=== PATIENT | female | born 1960 | race Caucasian/White ===

== ENCOUNTER 2017-03-21 16:39 | Emergency (ER) | payer MEDICARE, MEDICAID ==
[2017-03-21] MEDS ORDERED: Sodium Chloride 0.9% 500 ML IV SCH (18:45)
--- NOTE | 2017-03-21 18:47 | EDM.PDOC ---
ED HPI GENERAL MEDICAL PROBLEM - General Chief Complaint: General Stated Complaint: CONFUSION / INFECTION FROM INCISION ON STOMACH Time Seen by Provider: 03/21/17 18:28 Source of Information: Reports: Patient, Significant Other History Limitations: Reports: No Limitations - History of Present Illness INITIAL COMMENTS - FREE TEXT/NARRATIVE: 56 years old female patient presented with chief complaint of bolus overactive abdominal wound medication. Patient had recurrent hernia repair of her anterior abdominal wall. Done at [facility] by Dr. Aayush Junior. Patient concerned about infection of her surgical wound. Last surgery 1 month ago. Denies any fever. Feeling very weak today. Abdominal wound is getting more red, painful and mild purulent discharge. She is not on an antibiotic. Denies any chest pain or shortness breath. Denies any urinary symptoms. Denies any abdominal pain. No nausea or vomiting. - Related Data Allergies Allergy/AdvReac Type Severity Reaction Status Date / Time No Known Allergies Allergy Verified 03/21/17 17:12 Home Meds: Home Meds Cyclobenzaprine [Flexeril] 10 mg PO TID PRN 03/21/17 [History] Dexlansoprazole [Dexilant] 60 mg PO DAILY 03/21/17 [History] Ibuprofen 800 mg PO Q8H PRN 03/21/17 [History] Prochlorperazine [Compazine] 10 mg PO Q6H PRN 03/21/17 [History] Venlafaxine [Effexor] 150 mg PO BID 03/21/17 [History] diphenhydrAMINE HCl [Banophen] 25 mg PO Q8HR PRN 03/21/17 [History] oxyCODONE HCl/Acetaminophen [oxyCODONE-Acetaminophen 5-325] 1 - 2 tab PO Q4H PRN 03/21/17 [History] Past Medical History HEENT History: Reports: Impaired Vision Respiratory History: Reports: Asthma Gastrointestinal History: Reports: Cholelithiasis, Gastritis Musculoskeletal History: Reports: Arthritis Psychiatric History: Reports: Bipolar - Past Surgical History GI Surgical History: Reports: Cholecystectomy, Hernia Repair/Other, Other (See Below) Other GI Surgeries/Procedures: repairs to the mesh from multiple hernia repairs Social & Family History - Tobacco Use Smoking Status *Q: Current Every Day Smoker Years of Tobacco use: 35 Packs/Tins Daily: 1 - Caffeine Use Caffeine Use: Reports: Coffee, Soda - Alcohol Use Days Per Week of Alcohol Use: 7 Number of Drinks Per Day: 2 Total Drinks Per Week: 14 Date of Last Drink: 03/13/17 - Recreational Drug Use Recreational Drug Use: No ED ROS GENERAL - Review of Systems Review Of Systems: ROS reveals no pertinent complaints other than HPI. ED EXAM, GENERAL - Physical Exam Exam: See Below Exam Limited By: No Limitations General Appearance: Alert, WD/WN, No Apparent Distress Head: Atraumatic, Normocephalic Neck: Normal Inspection, Supple, Non-Tender, Full Range of Motion Respiratory/Chest: No Respiratory Distress, Lungs Clear, Normal Breath Sounds, No Accessory Muscle Use, Chest Non-Tender Cardiovascular: Normal Peripheral Pulses, Regular Rate, Rhythm, No Edema, No Gallop, No JVD, No Murmur, No Rub GI/Abdominal: Normal Bowel Sounds, Soft (Mild tenderness around the surgical wound was anterior abdominal wall. Induration. No obvious purulent discharge. Healing scab. Mild erythema. No guarding and no rebound.) Extremities: Normal Inspection, Normal Range of Motion, Non-Tender, Normal Capillary Refill, No Pedal Edema Neurological: Alert, Oriented, CN II-XII Intact, Normal Cognition, Normal Gait, Normal Reflexes, No Motor/Sensory Deficits Psychiatric: Normal Affect, Normal Mood Skin Exam: Warm, Dry, Intact, Normal Color, No Rash Course - Vital Signs Last Recorded V/S: Last Vital Signs Temp 35.6 C 03/21/17 19:19 Pulse 70 03/21/17 19:19 Resp 19 03/21/17 19:19 BP 121/61 03/21/17 19:19 Pulse Ox 98 03/21/17 19:19 - Orders/Labs/Meds Orders: Active Orders 24 hr Category Date Time Status UA W/MICROSCOPIC [URIN] Urgent Lab 03/21/17 19:19 Ordered Sodium Chloride 0.9% [Normal Saline] 500 ml Med 03/21/17 18:45 Active IV .BOLUS Medication Orders Sodium Chloride (Normal Saline) 500 mls @ 999 mls/hr IV .BOLUS NICKI Last Admin: 03/21/17 19:17 Dose: 999 mls/hr Labs: Laboratory Tests 03/21/17 03/21/17 03/21/17 Range/Units 18:52 18:52 18:52 WBC 7.0 (4.5-11.0) K/uL RBC 3.07 L (3.30-5.50) M/uL Hgb 9.2 L (12.0-15.0) g/dL Hct 28.6 L (36.0-48.0) % MCV 93 (80-98) fL MCH 30 (27-31) pg MCHC 32 (32-36) % Plt Count 199 (150-400) K/uL Neut % (Auto) 56 (36-66) % Lymph % (Auto) 26 (24-44) % [place] % (Auto) 16 H (2-6) % Eos % (Auto) 2 (2-4) % Baso % (Auto) 0 (0-1) % Sodium 137 L (140-148) mmol/L Potassium 3.3 L (3.6-5.2) mmol/L Chloride 105 (100-108) mmol/L Carbon Dioxide 24 (21-32) mmol/L Anion Gap 11.3 (5.0-14.0) mmol/L BUN 6 L (7-18) mg/dL Creatinine 0.9 (0.6-1.0) mg/dL Est Cr Clr Drug Dosing 66.90 mL/min Estimated GFR (MDRD) > 60 (>60) Glucose 80 (74-106) mg/dL Lactic Acid 1.5 (0.4-2.0) mmol/L Calcium 7.8 L (8.5-10.1) mg/dL Magnesium 2.1 (1.8-2.4) mg/dL Total Bilirubin 2.0 H (0.2-1.0) mg/dL AST 81 H (15-37) U/L ALT 26 (12-78) U/L Alkaline Phosphatase 172 H (46-116) U/L Total Protein 6.5 (6.4-8.2) g/dL Albumin 1.8 L (3.4-5.0) g/dL Globulin 4.7 H (2.3-3.5) g/dL Albumin/Globulin Ratio 0.4 L (1.2-2.2) Meds: Medications Generic Name Dose Route Start Last Admin Trade Name Freq PRN Reason Stop Dose Admin Sodium Chloride 500 mls @ 999 mls/hr 03/21/17 18:45 03/21/17 19:17 Normal Saline IV 999 mls/hr .BOLUS NICKI Administration - Re-Assessments/Exams Free Text/Narrative Re-Assessment/Exam: 03/21/17 18:46 Patient was seen and examined shortly after arrival. Stable. Given 500 male normal saline bolus. Lab reviewed. Anterior abdominal wall infection. I don't think there is deep intra-abdominal infection at this point but certainly if she starts showing any worsening sign she will need a CT abdomen and pelvis. Patient will be started on Vanco and Rocephin. The patient will be admitted to [facility] for further management tonight. She accepted admission for further management. Patient agrees with the plan. Stable for admission. 03/21/17 19:37 Departure - Departure Time of Disposition: 19:34 Disposition: [facility] Condition: Good Clinical Impression: Blister, infected, abdominal wall, Hypokalemia - Discharge Information Referrals: Jesus Rod MD [Primary Care Provider] - Forms: ED Department Discharge - My Orders Last 24 Hours: My Active Orders 03/21/17 18:45 Sodium Chloride 0.9% [Normal Saline] 500 ml IV .BOLUS 03/21/17 19:19 UA W/MICROSCOPIC [URIN] Urgent - Assessment/Plan Last 24 Hours: My Active Orders 03/21/17 18:45 Sodium Chloride 0.9% [Normal Saline] 500 ml IV .BOLUS 03/21/17 19:19 UA W/MICROSCOPIC [URIN] Urgent Plan: Admission
[2017-03-21] MEDS ORDERED: Pantoprazole 40 MG Vial IVPUSH ONE (20:29)
[2017-03-21] MEDS ORDERED: Iopamidol 612 MG/ML 100 ML Bottle IV PRN (20:42)
[2017-03-21] MEDS: Sodium Chloride 0.9% 10 ML Syringe FLUSH PRN ×2 (20:51→21:15)
[2017-03-21] MEDS ORDERED: cefTRIAXone 1 GM in Sodium Chloride 0.9% 50 ML IV ONE (21:11)
[2017-03-21] MEDS ORDERED: Sodium Chloride 0.9% 1,000 ML IV SCH (21:15)
--- NOTE | 2017-03-21 22:01 | EDM.PDOC ---
ED HPI GENERAL MEDICAL PROBLEM - General Chief Complaint: General Stated Complaint: CONFUSION / INFECTION FROM INCISION ON STOMACH Time Seen by Provider: 03/21/17 18:28 Source of Information: Reports: Patient, Significant Other History Limitations: Reports: No Limitations - History of Present Illness INITIAL COMMENTS - FREE TEXT/NARRATIVE: 56 years old female patient presented with chief complaint of bolus overactive abdominal wound medication. Patient had recurrent hernia repair of her anterior abdominal wall. Done at [facility] by Dr. Aayush Junior. Patient concerned about infection of her surgical wound. Last surgery 1 month ago. Denies any fever. Feeling very weak today. Abdominal wound is getting more red, painful and mild purulent discharge. She is not on an antibiotic. Denies any chest pain or shortness breath. Denies any urinary symptoms. Denies any abdominal pain. No nausea or vomiting. upon H&P exam for admission; Mrs. Coughlin reports she had worsen abdominal pain and intermittent confusion. she also reports not feeling well for the past week. Then reports had a MRI and Bx of Liver about one year ago, was told she had Stage 4 cirrhosis. She has been drinking 12 beers a day for years, quit 5 days ago, also had Chemical Dependency Treatment in February 2016, but didn't help, discharge and started to drink again. She reports intermittent black and bloody stool, last one a day ago, Vaginal bleeding 2 weeks ago. reports her buttocks and upper thighs have been very swollen the past few days. Reports colonscopy years ago, had polpys removed Medication Allergies; Latex, Plastic, Dilaudid. reports "crashed" when she was given Dilaudid while taking Chantix to quit smoking. Onset: Unknown/Unsure, Other (mesh surgery greater than one month ago.) Duration: Constant, Getting Worse Location: Reports: Abdomen, Generalized (not feeling well for 5 days, increased abdominal pain.) Quality: Reports: Ache, Sharp Severity: Moderate Improves with: Reports: Medication Worsens with: Reports: None Context: Reports: Other Associated Symptoms: Reports: Confusion (intermittent), Other (rectal bleed one day ago and vaginal bleeding 2 weeks ago.) - Related Data Allergies Allergy/AdvReac Type Severity Reaction Status Date / Time No Known Allergies Allergy Verified 03/21/17 17:12 Home Meds: Home Meds Cyclobenzaprine [Flexeril] 10 mg PO TID PRN 03/21/17 [History] Dexlansoprazole [Dexilant] 60 mg PO DAILY 03/21/17 [History] Ibuprofen 800 mg PO Q8H PRN 03/21/17 [History] Prochlorperazine [Compazine] 10 mg PO Q6H PRN 03/21/17 [History] Venlafaxine [Effexor] 150 mg PO BID 03/21/17 [History] diphenhydrAMINE HCl [Banophen] 25 mg PO Q8HR PRN 03/21/17 [History] oxyCODONE HCl/Acetaminophen [oxyCODONE-Acetaminophen 5-325] 1 - 2 tab PO Q4H PRN 03/21/17 [History] Past Medical History HEENT History: Reports: Impaired Vision Respiratory History: Reports: Asthma Gastrointestinal History: Reports: Cholelithiasis, Gastritis Musculoskeletal History: Reports: Arthritis Psychiatric History: Reports: Bipolar - Past Surgical History GI Surgical History: Reports: Cholecystectomy, Hernia Repair/Other, Other (See Below) Other GI Surgeries/Procedures: repairs to the mesh from multiple hernia repairs Social & Family History - Tobacco Use Smoking Status *Q: Current Every Day Smoker Years of Tobacco use: 35 Packs/Tins Daily: 1 - Caffeine Use Caffeine Use: Reports: Coffee, Soda - Alcohol Use Days Per Week of Alcohol Use: 7 Number of Drinks Per Day: 2 Total Drinks Per Week: 14 Date of Last Drink: 03/13/17 - Recreational Drug Use Recreational Drug Use: No ED ROS GENERAL - Review of Systems Review Of Systems: See Below Constitutional: Reports: Weakness, Fatigue, Weight Gain (edema of abdomen, buttocks and upper thigh.) HEENT: Reports: Glasses, Other (partial dentures of upper.) Respiratory: Reports: Other (smokes 3/4 to one pack per day; years.) Cardiovascular: Reports: No Symptoms Endocrine: Reports: Fatigue GI/Abdominal: Reports: Abdominal Pain (wound dehiscense), Black Stool ( intermittent), Bloody Stool, Nausea (heartburn) : Reports: Incontinence Musculoskeletal: Reports: Other (multi pain in joints, muscles, ankle and low back) Skin: Reports: Pallor, Wound (abdomin) Neurological: Reports: Confusion Psychiatric: Reports: No Symptoms Hematologic/Lymphatic: Reports: Anemia, Easy Bleeding, Easy Bruising Immunologic: Reports: Other (Plastic, latex and Dilaudid) ED EXAM, GI/ABD - Physical Exam Exam: See Below Exam Limited By: No Limitations General Appearance: Alert, Mild Distress, Other (appears much older than stated age. pallor) Eyes: Bilateral: Normal Appearance Ears: Normal External Exam, Normal Canal, Normal TMs Nose: Normal Inspection Throat/Mouth: Normal Inspection, Normal Lips, Normal Teeth, Normal Gums Head: Atraumatic, Normocephalic Neck: Normal Inspection, Supple, Non-Tender Respiratory/Chest: No Respiratory Distress, Lungs Clear, Normal Breath Sounds, No Accessory Muscle Use, Chest Non-Tender Cardiovascular: No Murmur, Other (anasarca) GI/Abdominal Exam: Distended, Guarding, Tender (mid to right upper quadrant. 5cm x 2.5 cm wound dehiscence), Abnormal Bowel Sounds, Other (tissue surrounding wound is hard, tender and red.) (Female) Exam: Normal External Exam, Normal Bimanual Exam, Other (did not appreciate any uriah bleeding.) Rectal (Female) Exam: Normal Exam, Normal Rectal Tone, Heme - Stool Back Exam: Normal Inspection, Full Range of Motion Extremities: Other (upper thigh with edema, tender to touch) Neurological: Alert, Inattentive Psychiatric: Normal Affect, Normal Mood Skin Exam: Warm, Rash (fingers; petechial rash), Wound/Incision Lymphatic: No Adenopathy Course - Vital Signs Last Recorded V/S: Last Vital Signs Temp 35.6 C 03/21/17 19:19 Pulse 64 03/21/17 20:13 Resp 19 03/21/17 20:13 BP 108/69 03/21/17 20:13 Pulse Ox 97 03/21/17 20:13 - Orders/Labs/Meds Orders: Active Orders 24 hr Category Date Time Status Abdomen Pelvis w Cont [CT] Stat Exams 03/21/17 20:25 Taken CULTURE BLOOD [BC] Urgent Lab 03/21/17 21:12 Ordered CULTURE BLOOD [BC] Urgent Lab 03/21/17 21:12 Ordered Iopamidol [Isovue-300 (61%)] Med 03/21/17 20:42 Active 100 ml IV . DIRECTED PRN Sodium Chloride 0.9% [Normal Saline] 1,000 ml Med 03/21/17 21:15 Active IV ASDIRECTED Sodium Chloride 0.9% [Normal Saline] 500 ml Med 03/21/17 18:45 Active IV .BOLUS Sodium Chloride 0.9% [Normal Saline] 70 ml Med 03/21/17 20:45 Active IV ASDIRECTED Sodium Chloride 0.9% [Saline Flush] Med 03/21/17 20:42 Active 10 ml FLUSH ONETIME PRN Vancomycin 1 gm Med 03/21/17 21:11 Active Sodium Chloride 0.9% [Normal Saline] 250 ml IV ONETIME Blood Culture x2 Reflex Set [OM.PC] Urgent Oth 03/21/17 21:11 Ordered Medication Orders Sodium Chloride (Normal Saline) 500 mls @ 999 mls/hr IV .BOLUS NICKI Last Admin: 03/21/17 19:17 Dose: 999 mls/hr Sodium Chloride (Normal Saline) 70 mls @ 3 mls/sec IV ASDIRECTED NICKI Last Admin: 03/21/17 21:15 Dose: 3 mls/sec Sodium Chloride (Normal Saline) 1,000 mls @ 150 mls/hr IV ASDIRECTED NICKI Last Admin: 03/21/17 21:42 Dose: 150 mls/hr Vancomycin HCl 1 gm/ Sodium (Chloride) 250 mls @ 150 mls/hr IV ONETIME ONE Stop: 03/21/17 22:50 Last Admin: 03/21/17 21:46 Dose: 150 mls/hr Iopamidol (Isovue-300 (61%)) 100 ml IV . DIRECTED PRN PRN Reason: RADIOLOGY EXAM Stop: 03/22/17 20:43 Last Admin: 03/21/17 21:15 Dose: 100 ml Sodium Chloride (Saline Flush) 10 ml FLUSH ONETIME PRN PRN Reason: per radiology protocol Last Admin: 03/21/17 21:15 Dose: 10 ml Admin: 03/21/17 20:51 Dose: 10 ml Labs: Laboratory Tests 03/21/17 03/21/17 03/21/17 Range/Units 18:00 18:52 18:52 WBC 7.0 (4.5-11.0) K/uL RBC 3.07 L (3.30-5.50) M/uL Hgb 9.2 L (12.0-15.0) g/dL Hct 28.6 L (36.0-48.0) % MCV 93 (80-98) fL MCH 30 (27-31) pg MCHC 32 (32-36) % Plt Count 199 (150-400) K/uL Neut % (Auto) 56 (36-66) % Lymph % (Auto) 26 (24-44) % [place] % (Auto) 16 H (2-6) % Eos % (Auto) 2 (2-4) % Baso % (Auto) 0 (0-1) % PT (9.5-12.0) sec INR (0.80-1.20) Sodium 137 L (140-148) mmol/L Potassium 3.3 L (3.6-5.2) mmol/L Chloride 105 (100-108) mmol/L Carbon Dioxide 24 (21-32) mmol/L Anion Gap 11.3 (5.0-14.0) mmol/L BUN 6 L (7-18) mg/dL Creatinine 0.9 (0.6-1.0) mg/dL Est Cr Clr Drug Dosing 66.90 mL/min Estimated GFR (MDRD) > 60 (>60) Glucose 80 (74-106) mg/dL Lactic Acid (0.4-2.0) mmol/L Calcium 7.8 L (8.5-10.1) mg/dL Magnesium 2.1 (1.8-2.4) mg/dL Total Bilirubin 2.0 H (0.2-1.0) mg/dL AST 81 H (15-37) U/L ALT 26 (12-78) U/L Alkaline Phosphatase 172 H (46-116) U/L Ammonia (11-32) mmol/L Total Protein 6.5 (6.4-8.2) g/dL Albumin 1.8 L (3.4-5.0) g/dL Globulin 4.7 H (2.3-3.5) g/dL Albumin/Globulin Ratio 0.4 L (1.2-2.2) Amylase (25-115) U/L Lipase (73-393) U/L Urine Color Yellow Urine Appearance Slightly cloudy Urine pH 6.0 (4.5-8.0) Ur Specific [place] 1.005 L (1.008-1.030) Urine Protein Negative (NEGATIVE) mg/dL Urine Glucose (UA) Normal (NEGATIVE) mg/dL Urine Ketones Negative (NEGATIVE) mg/dL Urine Occult Blood Negative (NEGATIVE) Urine Nitrite Negative (NEGATIVE) Urine Bilirubin Negative (NEGATIVE) Urine Urobilinogen 1 (NORMAL) mg/dL Ur Leukocyte Esterase Negative (NEGATIVE) Urine RBC 0-5 (0-5) Urine WBC 0-5 (0-5) Ur Epithelial Cells Moderate Amorphous Sediment Not seen Urine Bacteria Moderate Urine Mucus Few Urine Opiates Screen (NEGATIVE) Ur Oxycodone Screen (NEGATIVE) Urine Methadone Screen (NEGATIVE) Ur Propoxyphene Screen (NEGATIVE) Ur Barbiturates Screen (NEGATIVE) Ur Tricyclics Screen (NEGATIVE) Ur Phencyclidine Scrn (NEGATIVE) Ur Amphetamine Screen (NEGATIVE) U Methamphetamines Scrn (NEGATIVE) Urine MDMA Screen (NEGATIVE) U Benzodiazepines Scrn (NEGATIVE) U Cocaine Metab Screen (NEGATIVE) U Marijuana (THC) Screen (NEGATIVE) Ethyl Alcohol mg/dL 03/21/17 03/21/17 03/21/17 Range/Units 18:52 20:27 20:27 WBC (4.5-11.0) K/uL RBC (3.30-5.50) M/uL Hgb (12.0-15.0) g/dL Hct (36.0-48.0) % MCV (80-98) fL MCH (27-31) pg MCHC (32-36) % Plt Count (150-400) K/uL Neut % (Auto) (36-66) % Lymph % (Auto) (24-44) % [place] % (Auto) (2-6) % Eos % (Auto) (2-4) % Baso % (Auto) (0-1) % PT (9.5-12.0) sec INR (0.80-1.20) Sodium (140-148) mmol/L Potassium (3.6-5.2) mmol/L Chloride (100-108) mmol/L Carbon Dioxide (21-32) mmol/L Anion Gap (5.0-14.0) mmol/L BUN (7-18) mg/dL Creatinine (0.6-1.0) mg/dL Est Cr Clr Drug Dosing mL/min Estimated GFR (MDRD) (>60) Glucose (74-106) mg/dL Lactic Acid 1.5 (0.4-2.0) mmol/L Calcium (8.5-10.1) mg/dL Magnesium (1.8-2.4) mg/dL Total Bilirubin (0.2-1.0) mg/dL AST (15-37) U/L ALT (12-78) U/L Alkaline Phosphatase (46-116) U/L Ammonia 70 H (11-32) mmol/L Total Protein (6.4-8.2) g/dL Albumin (3.4-5.0) g/dL Globulin (2.3-3.5) g/dL Albumin/Globulin Ratio (1.2-2.2) Amylase (25-115) U/L Lipase (73-393) U/L Urine Color Urine Appearance Urine pH (4.5-8.0) Ur Specific [place] (1.008-1.030) Urine Protein (NEGATIVE) mg/dL Urine Glucose (UA) (NEGATIVE) mg/dL Urine Ketones (NEGATIVE) mg/dL Urine Occult Blood (NEGATIVE) Urine Nitrite (NEGATIVE) Urine Bilirubin (NEGATIVE) Urine Urobilinogen (NORMAL) mg/dL Ur Leukocyte Esterase (NEGATIVE) Urine RBC (0-5) Urine WBC (0-5) Ur Epithelial Cells Amorphous Sediment Urine Bacteria Urine Mucus Urine Opiates Screen (NEGATIVE) Ur Oxycodone Screen (NEGATIVE) Urine Methadone Screen (NEGATIVE) Ur Propoxyphene Screen (NEGATIVE) Ur Barbiturates Screen (NEGATIVE) Ur Tricyclics Screen (NEGATIVE) Ur Phencyclidine Scrn (NEGATIVE) Ur Amphetamine Screen (NEGATIVE) U Methamphetamines Scrn (NEGATIVE) Urine MDMA Screen (NEGATIVE) U Benzodiazepines Scrn (NEGATIVE) U Cocaine Metab Screen (NEGATIVE) U Marijuana (THC) Screen (NEGATIVE) Ethyl Alcohol < 3 mg/dL 03/21/17 03/21/17 03/21/17 Range/Units 20:27 20:49 21:33 WBC (4.5-11.0) K/uL RBC (3.30-5.50) M/uL Hgb (12.0-15.0) g/dL Hct (36.0-48.0) % MCV (80-98) fL MCH (27-31) pg MCHC (32-36) % Plt Count (150-400) K/uL Neut % (Auto) (36-66) % Lymph % (Auto) (24-44) % [place] % (Auto) (2-6) % Eos % (Auto) (2-4) % Baso % (Auto) (0-1) % PT 15.7 H (9.5-12.0) sec INR 1.44 H (0.80-1.20) Sodium (140-148) mmol/L Potassium (3.6-5.2) mmol/L Chloride (100-108) mmol/L Carbon Dioxide (21-32) mmol/L Anion Gap (5.0-14.0) mmol/L BUN (7-18) mg/dL Creatinine (0.6-1.0) mg/dL Est Cr Clr Drug Dosing mL/min Estimated GFR (MDRD) (>60) Glucose (74-106) mg/dL Lactic Acid (0.4-2.0) mmol/L Calcium (8.5-10.1) mg/dL Magnesium (1.8-2.4) mg/dL Total Bilirubin (0.2-1.0) mg/dL AST (15-37) U/L ALT (12-78) U/L Alkaline Phosphatase (46-116) U/L Ammonia (11-32) mmol/L Total Protein (6.4-8.2) g/dL Albumin (3.4-5.0) g/dL Globulin (2.3-3.5) g/dL Albumin/Globulin Ratio (1.2-2.2) Amylase 20 L (25-115) U/L Lipase 57 L (73-393) U/L Urine Color Urine Appearance Urine pH (4.5-8.0) Ur Specific [place] (1.008-1.030) Urine Protein (NEGATIVE) mg/dL Urine Glucose (UA) (NEGATIVE) mg/dL Urine Ketones (NEGATIVE) mg/dL Urine Occult Blood (NEGATIVE) Urine Nitrite (NEGATIVE) Urine Bilirubin (NEGATIVE) Urine Urobilinogen (NORMAL) mg/dL Ur Leukocyte Esterase (NEGATIVE) Urine RBC (0-5) Urine WBC (0-5) Ur Epithelial Cells Amorphous Sediment Urine Bacteria Urine Mucus Urine Opiates Screen Negative (NEGATIVE) Ur Oxycodone Screen Positive H (NEGATIVE) Urine Methadone Screen Negative (NEGATIVE) Ur Propoxyphene Screen Negative (NEGATIVE) Ur Barbiturates Screen Negative (NEGATIVE) Ur Tricyclics Screen Positive H (NEGATIVE) Ur Phencyclidine Scrn Negative (NEGATIVE) Ur Amphetamine Screen Negative (NEGATIVE) U Methamphetamines Scrn Negative (NEGATIVE) Urine MDMA Screen Negative (NEGATIVE) U Benzodiazepines Scrn Negative (NEGATIVE) U Cocaine Metab Screen Negative (NEGATIVE) U Marijuana (THC) Screen Negative (NEGATIVE) Ethyl Alcohol mg/dL Meds: Medications Generic Name Dose Route Start Last Admin Trade Name Roosevelt PRN Reason Stop Dose Admin Sodium Chloride 500 mls @ 999 mls/hr 03/21/17 18:45 03/21/17 19:17 Normal Saline IV 999 mls/hr .BOLUS NICKI Administration Sodium Chloride 70 mls @ 3 mls/sec 03/21/17 20:45 03/21/17 21:15 Normal Saline IV 3 mls/sec ASDIRECTED NICKI Administration Sodium Chloride 1,000 mls @ 150 mls/hr 03/21/17 21:15 03/21/17 21:42 Normal Saline IV 150 mls/hr ASDIRECTED NICKI Administration Vancomycin HCl 1 gm/ Sodium 250 mls @ 150 mls/hr 03/21/17 21:11 03/21/17 21: 46 Chloride IV 03/21/17 22:50 150 mls/hr ONETIME ONE Administration Iopamidol 100 ml 03/21/17 20:42 03/21/17 21:15 Isovue-300 (61%) IV 03/22/17 20:43 100 ml . DIRECTED PRN Administration RADIOLOGY EXAM Sodium Chloride 10 ml 03/21/17 20:42 03/21/17 21:15 Saline Flush FLUSH 10 ml ONETIME PRN Administration per radiology protocol Discontinued Medications Generic Name Dose Route Start Last Admin Trade Name Roosevelt PRN Reason Stop Dose Admin Ceftriaxone Sodium 1 gm/ 50 mls @ 100 mls/hr 03/21/17 21:11 03/21/17 21:43 Sodium Chloride IV 03/21/17 21:40 100 mls/hr ONETIME ONE Administration Pantoprazole Sodium 40 mg 03/21/17 20:29 03/21/17 20:51 Protonix Iv IVPUSH 03/21/17 20:30 40 mg ONETIME ONE Administration - Re-Assessments/Exams Free Text/Narrative Re-Assessment/Exam: 03/21/17 22:10 consult with Internal Medicine Hospitalist and Surgeon university relations director; recommend higher level of care for this patient Departure - Departure Time of Disposition: 22:18 Disposition: DC/Tfer to Other 70 Condition: Fair Clinical Impression: Blister, infected, abdominal wall, Hypokalemia, Chronic abdominal wound infection, End stage liver disease, Cirrhosis of liver, Hepatic encephalopathy, Alcohol abuse, Anemia - Discharge Information Referrals: Jesus Rod MD [Primary Care Provider] - Forms: ED Department Discharge Care Plan Goals: Contact [facility]. review with Dr. Pittman, Hospitalist, will accept transfer Transfer to [facility] for further care and treatment. Transfer via EMS Mrs. Coughlin agrees to plan of care. - Problem List & Annotations (1) Alcohol abuse SNOMED Code(s): 24208550 Code(s): F10.10 - ALCOHOL ABUSE, UNCOMPLICATED Status: Acute Priority: High Current Visit: Yes (2) Anemia SNOMED Code(s): 281918870 Code(s): D64.9 - ANEMIA, UNSPECIFIED Status: Acute Priority: High Current Visit: Yes Qualifiers: Anemia type: unspecified type Qualified Code(s): D64.9 - Anemia, unspecified (3) Chronic abdominal wound infection SNOMED Code(s): 31405892 Code(s): S31.109A - UNSP OPN WND ABD WALL, UNSP Q W/O PENET PERIT CAV, INIT; L08.9 - LOCAL INFECTION OF THE SKIN AND SUBCUTANEOUS TISSUE, UNSP Status: Acute Priority: High Current Visit: Yes Qualifiers: Encounter type: initial encounter Qualified Code(s): S31.109A - Unspecified open wound of abdominal wall, unspecified quadrant without penetration into peritoneal cavity, initial encounter; L08.9 - Local infection of the skin and subcutaneous tissue, unspecified; L08.9 - Local infection of the skin and subcutaneous tissue, unspecified (4) Cirrhosis of liver SNOMED Code(s): 32361853 Code(s): K74.60 - UNSPECIFIED CIRRHOSIS OF LIVER Status: Acute Priority: High Current Visit: Yes Qualifiers: Hepatic cirrhosis type: alcoholic cirrhosis Ascites presence: with ascites Qualified Code(s): K70.31 - Alcoholic cirrhosis of liver with ascites (5) End stage liver disease SNOMED Code(s): 241750749 Code(s): K72.90 - HEPATIC FAILURE, UNSPECIFIED WITHOUT COMA Status: Acute Priority: High Current Visit: Yes (6) Hepatic encephalopathy SNOMED Code(s): 37267046 Code(s): K72.90 - HEPATIC FAILURE, UNSPECIFIED WITHOUT COMA Status: Acute Priority: High Current Visit: Yes (7) Hypokalemia SNOMED Code(s): 51466417 Code(s): E87.6 - HYPOKALEMIA Status: Acute Priority: High Current Visit : Yes - Problem List Review Problem List Initiated/Reviewed/Updated: Yes - My Orders Last 24 Hours: My Active Orders 03/21/17 20:25 Abdomen Pelvis w Cont [CT] Stat 03/21/17 21:11 Vancomycin 1 gm Sodium Chloride 0.9% [Normal Saline] 250 ml IV ONETIME Blood Culture x2 Reflex Set [OM.PC] Urgent 03/21/17 21:12 CULTURE BLOOD [BC] Urgent CULTURE BLOOD [BC] Urgent 03/21/17 21:15 Sodium Chloride 0.9% [Normal Saline] 1,000 ml IV ASDIRECTED - Assessment/Plan Last 24 Hours: My Active Orders 03/21/17 20:25 Abdomen Pelvis w Cont [CT] Stat 03/21/17 21:11 Vancomycin 1 gm Sodium Chloride 0.9% [Normal Saline] 250 ml IV ONETIME Blood Culture x2 Reflex Set [OM.PC] Urgent 03/21/17 21:12 CULTURE BLOOD [BC] Urgent CULTURE BLOOD [BC] Urgent 03/21/17 21:15 Sodium Chloride 0.9% [Normal Saline] 1,000 ml IV ASDIRECTED Plan: Transfer to [facility] for further care and treatment.
== END 2017-03-21 22:20 | disposition other institution (70) ==
LOC: JP.ED 16:39
DX: S31.109A Unspecified open wound of abdominal wall, unspecified quadrant without penetration into peritoneal cavity, initial encounter (principal); L08.9 Local infection of the skin and subcutaneous tissue, unspecified; D64.9 Anemia, unspecified; F10.10 Alcohol abuse, uncomplicated; K70.31 Alcoholic cirrhosis of liver with ascites; K72.90 Hepatic failure, unspecified without coma; E87.6 Hypokalemia; J45.909 Unspecified asthma, uncomplicated; F31.9 Bipolar disorder, unspecified; F17.210 Nicotine dependence, cigarettes, uncomplicated; Z90.49 Acquired absence of other specified parts of digestive tract; Z98.890 Other specified postprocedural states; Z79.899 Other long term (current) drug therapy; X58.XXXA Exposure to other specified factors, initial encounter; Y90.0 Blood alcohol level of less than 20 mg/100 ml
CPT/HCPCS: 36415; 74177; 80053; 80305; 81001; 82140; 82150; 82272; 83605; 83690; 83735; 85025; 85610; 87040; 96361; 96365; 96368; 96375; 99285; C9113; G0480; J0696; J3370; J7030; J7040; J7050; Q9967; 99284

== ENCOUNTER 2018-01-24 21:15 | Emergency (ER) | payer MEDICARE, MEDICAID ==
[2018-01-24] MEDS ORDERED: Ondansetron 4 MG/2 ML SDV IVPUSH ONE (21:58)
[2018-01-24] MEDS ORDERED: HYDROmorphone 0.5 MG/0.5 ML Syringe IVPUSH ONE (21:59)
[2018-01-24] MEDS ORDERED: Sodium Chloride 0.9% 1,000 ML IV SCH (22:00)
--- NOTE | 2018-01-24 22:05 | EDM.PDOC ---
ED HPI GENERAL MEDICAL PROBLEM - General Chief Complaint: Wound Recheck Stated Complaint: BLEEDING Time Seen by Provider: 01/24/18 21:25 - History of Present Illness INITIAL COMMENTS - FREE TEXT/NARRATIVE: pt has a open wound from where she had GB surgery about 4 years ago. She did develop multiple hernias and has had surgery for that. She has bleed from the area from time to time but tonight was the worse, He has alot of clots and old and new blood that came out of the wound. She is having increased pain in the wound area. Onset: Today, Other ( Pt bled alot from the wound. ) Duration: Hour(s): Location: Reports: Abdomen Associated Symptoms: Reports: Weakness Abdominal Pain Score (Numeric/FACES): 7 - Related Data Allergies Allergy/AdvReac Type Severity Reaction Status Date / Time adhesive tape Allergy Rash Verified 06/17/17 09:50 Latex, Natural Rubber Allergy Rash Verified 06/17/17 09:50 varenicline [From Chantix] Allergy Other Verified 06/17/17 09:50 morphine AdvReac Nausea and Verified 06/17/17 14:27 Vomiting Home Meds: Home Meds Cyclobenzaprine [Flexeril] 10 mg PO TID PRN 03/21/17 [History] Dexlansoprazole [Dexilant] 60 mg PO DAILY 03/21/17 [History] Ibuprofen 800 mg PO Q8H PRN 03/21/17 [History] Prochlorperazine [Compazine] 10 mg PO Q6H PRN 03/21/17 [History] Venlafaxine [Effexor] 150 mg PO DAILY 03/21/17 [History] diphenhydrAMINE HCl [Banophen] 25 mg PO Q6HR PRN 03/21/17 [History] oxyCODONE HCl/Acetaminophen [oxyCODONE-Acetaminophen 5-325] 1 - 2 tab PO Q4H PRN 03/21/17 [History] Acetaminophen [Tylenol] 650 mg PO Q4HR PRN 06/17/17 [History] Albuterol Sulfate [Ventolin Hfa] 2 puff INH Q4HR PRN 06/17/17 [History] Calcium Carbonate/Vitamin D3 [Calcium Carb 500 MG] 500 mg PO ASDIRECTED PRN 03/25 [History] Cyanocobalamin (Vitamin B12) [Vitamin B12] 2,500 mcg PO WEEKLY 06/17/17 [History ] Furosemide [Lasix] 20 mg PO DAILY 06/17/17 [History] Magnesium Oxide 400 mg PO DAILY 06/17/17 [History] Metoprolol Succinate [Toprol XL] 50 mg PO DAILY 06/17/17 [History] Multivitamin [Multiple Vitamins] 2 tab PO DAILY 06/17/17 [History] Omeprazole 20 mg PO BID 06/17/17 [History] Polyethylene Glycol 3350 1 packet PO BEDTIME 06/17/17 [History] QUEtiapine Fumarate [Quetiapine Fumarate] 100 mg PO BEDTIME 06/17/17 [History] Thiamine HCl [B-1] 100 mg PO DAILY 06/17/17 [History] Cyclobenzaprine HCl 5 mg PO ASDIRECTED PRN 01/25/18 [History] diphenhydrAMINE HCl [Banophen] 25 mg PO ASDIRECTED 01/25/18 [History] Past Medical History HEENT History: Reports: Impaired Vision Respiratory History: Reports: Asthma Gastrointestinal History: Reports: Cholelithiasis, Gastritis Genitourinary History: Reports: Urinary Incontinence 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 states that she has a mass and a twisted colon was not able to get the colonoscopy. Social & Family History - Tobacco Use Smoking Status *Q: Heavy Tobacco Smoker Years of Tobacco use: 40 Packs/Tins Daily: 1 - Caffeine Use Caffeine Use: Reports: Soda - Recreational Drug Use Recreational Drug Use: No ED ROS GENERAL - Review of Systems Review Of Systems: See Below Constitutional: Reports: No Symptoms HEENT: Reports: No Symptoms Respiratory: Reports: No Symptoms Cardiovascular: Reports: No Symptoms Endocrine: Reports: No Symptoms GI/Abdominal: Reports: Abdominal Pain, Other (bleeding from the wound. ) : Reports: No Symptoms Musculoskeletal: Reports: No Symptoms Skin: Reports: No Symptoms, Other Psychiatric: Reports: No Symptoms ED EXAM, GENERAL - Physical Exam Exam: See Below Free Text/Narrative:: pt arrived with a history of doing alot of bleeding from the wound. She has been drinking today. She states that She has increased abdomanal wpain. Exam Limited By: No Limitations General Appearance: Alert, Mild Distress Ears: Normal TMs Nose: Normal Inspection Throat/Mouth: Normal Inspection Head: Atraumatic Neck: Normal Inspection Respiratory/Chest: No Respiratory Distress Cardiovascular: Regular Rate, Rhythm GI/Abdominal: Other (pt seemes to be having spasms in the abdomanal muscles. She hjas been bleeding. She is tender on the left side of the wound. ) (Female) Exam: Deferred Rectal (Female) Exam: Deferred Back Exam: Normal Inspection Extremities: Normal Inspection Neurological: Alert, Oriented, Normal Cognition Psychiatric: Depressed Mood, Other (ptis intoxicated. ) Course - Vital Signs Last Recorded V/S: Last Vital Signs Temp 36.6 C 01/24/18 21:28 Pulse 85 01/24/18 23:16 Resp 18 01/24/18 23:16 BP 123/96 H 01/24/18 23:16 Pulse Ox 93 L 01/24/18 23:16 - Orders/Labs/Meds Labs: Laboratory Tests 01/24/18 01/24/18 01/24/18 Range/Units 21:44 21:44 21:44 WBC 3.9 L (4.5-11.0) K/uL RBC 2.89 L (3.30-5.50) M/uL Hgb 9.4 L (12.0-15.0) g/dL Hct 28.7 L (36.0-48.0) % MCV 99 H (80-98) fL MCH 33 H (27-31) pg MCHC 33 (32-36) % Plt Count 126 L (150-400) K/uL Neut % (Auto) 42 (36-66) % Lymph % (Auto) 38 (24-44) % [place] % (Auto) 17 H (2-6) % Eos % (Auto) 2 (2-4) % Baso % (Auto) 1 (0-1) % PT (9.5-12.0) sec INR (0.80-1.20) APTT (27.0-36.0) sec Sodium 141 (140-148) mmol/L Potassium 3.8 (3.6-5.2) mmol/L Chloride 106 (100-108) mmol/L Carbon Dioxide 27 (21-32) mmol/L Anion Gap 8.5 (5.0-14.0) mmol/L BUN 6 L (7-18) mg/dL Creatinine 0.6 (0.6-1.0) mg/dL Est Cr Clr Drug Dosing 95.33 mL/min Estimated GFR (MDRD) > 60 (>60) Glucose 90 (74-106) mg/dL Calcium 7.5 L (8.5-10.1) mg/dL Magnesium (1.8-2.4) mg/dL Total Bilirubin (0.2-1.0) mg/dL Direct Bilirubin (0.0-0.2) mg/dL Indirect Bilirubin AST (15-37) U/L ALT (12-78) U/L Alkaline Phosphatase (46-116) U/L C-Reactive Protein (0.0-0.3) mg/dL Total Protein (6.4-8.2) g/dL Albumin (3.4-5.0) g/dL Globulin (2.3-3.5) g/dL Albumin/Globulin Ratio (1.2-2.2) Ethyl Alcohol 325 mg/dL 01/24/18 01/24/18 01/24/18 Range/Units 22:11 22:12 22:20 WBC (4.5-11.0) K/uL RBC (3.30-5.50) M/uL Hgb (12.0-15.0) g/dL Hct (36.0-48.0) % MCV (80-98) fL MCH (27-31) pg MCHC (32-36) % Plt Count (150-400) K/uL Neut % (Auto) (36-66) % Lymph % (Auto) (24-44) % [place] % (Auto) (2-6) % Eos % (Auto) (2-4) % Baso % (Auto) (0-1) % PT 12.9 H (9.5-12.0) sec INR 1.18 (0.80-1.20) APTT 29.6 (27.0-36.0) sec Sodium (140-148) mmol/L Potassium (3.6-5.2) mmol/L Chloride (100-108) mmol/L Carbon Dioxide (21-32) mmol/L Anion Gap (5.0-14.0) mmol/L BUN (7-18) mg/dL Creatinine (0.6-1.0) mg/dL Est Cr Clr Drug Dosing mL/min Estimated GFR (MDRD) (>60) Glucose (74-106) mg/dL Calcium (8.5-10.1) mg/dL Magnesium 1.8 (1.8-2.4) mg/dL Total Bilirubin 0.4 D (0.2-1.0) mg/dL Direct Bilirubin 0.16 (0.0-0.2) mg/dL Indirect Bilirubin 0.24 AST 173 H D (15-37) U/L ALT 60 D (12-78) U/L Alkaline Phosphatase 346 H D (46-116) U/L C-Reactive Protein 0.23 (0.0-0.3) mg/dL Total Protein 6.6 (6.4-8.2) g/dL Albumin 2.5 L (3.4-5.0) g/dL Globulin 4.1 H (2.3-3.5) g/dL Albumin/Globulin Ratio 0.6 L (1.2-2.2) Ethyl Alcohol mg/dL Meds: Medications Discontinued Medications Generic Name Dose Route Start Last Admin Trade Name Freq PRN Reason Stop Dose Admin Benzocaine/Menthol 1 lozenge 01/25/18 00:57 01/25/18 01:03 Cepacol Sore Throat MUCMEM 01/25/18 00:58 1 dose ASDIRECTED ONE Administration Hydromorphone HCl 0.5 mg 01/24/18 21:59 01/24/18 22:03 Dilaudid IVPUSH 01/24/18 22:00 0.5 mg ONETIME ONE Administration Hydromorphone HCl 0.5 mg 01/25/18 00:43 01/25/18 00:48 Dilaudid IVPUSH 01/25/18 00:44 0.5 mg ONETIME ONE Administration Sodium Chloride 1,000 mls @ 400 mls/hr 01/24/18 22:00 01/24/18 22:07 Normal Saline IV 400 mls/hr ASDIRECTED NICKI Administration Sodium Chloride 100 mls @ 3 mls/sec 01/24/18 22:45 01/24/18 22:59 Normal Saline IV 3 mls/sec ASDIRECTED NICKI Administration Iopamidol 100 ml 01/24/18 22:45 01/24/18 22:59 Isovue-300 (61%) IV 100 ml . DIRECTED NICKI Administration Ondansetron HCl 4 mg 01/24/18 21:58 01/24/18 22:03 Zofran IVPUSH 01/24/18 21:59 4 mg ONETIME ONE Administration Oxycodone/Acetaminophen 1 tab 01/25/18 05:42 01/25/18 05:50 Percocet 325-5 Mg PO 01/25/18 05:43 1 tab ONETIME ONE Administration - Re-Assessments/Exams Free Text/Narrative Re-Assessment/Exam: 01/25/18 00:59 pt is mildly anemic. She does have a low wbc and platlet count. She had a cat scan of the abdoman which showed a fluid collection below the wound which could be old blood. She had elevated liver enzymes but she has cirrohosis of the liver. She does bleed easily because of her liver disease. . Departure - Departure Time of Disposition: 01:02 Disposition: Home, Self-Care 01 Condition: Fair Clinical Impression: Bleeding from wound, Anemia, Acute alcohol intoxication Cirrhosis of liver Qualifiers: Hepatic cirrhosis type: alcoholic cirrhosis Ascites presence: with ascites Qualified Code(s): K70.31 - Alcoholic cirrhosis of liver with ascites - Discharge Information Instructions: Anemia, Cirrhosis Referrals: PCP,None [Primary Care Provider] - Forms: ED Department Discharge Care Plan Goals: appt with Dr Medina to evaluate the wound. , stop drinking because of her cirrohosis. cont with motrin, tylenol for pain, cont with oxycodone.
[2018-01-24] MEDS ORDERED: Sodium Chloride 0.9% 100 ML IV SCH (22:45)
[2018-01-24] MEDS ORDERED: Iopamidol 612 MG/ML 100 ML Bottle IV SCH (22:45)
[2018-01-25] MEDS ORDERED: HYDROmorphone 0.5 MG/0.5 ML Syringe IVPUSH ONE (00:43)
[2018-01-25] MEDS ORDERED: Benzocaine/Cetylpyridinium/Menthol Lozenge MUCMEM ONE (00:57)
[2018-01-25] MEDS ORDERED: Acetaminophen/oxyCODONE 325-5 MG Tab PO ONE (05:42)
== END 2018-01-25 08:20 | disposition home or self-care (01) ==
LOC: JP.ED 21:15
DX: K91.840 Postprocedural hemorrhage of a digestive system organ or structure following a digestive system procedure (principal); K70.31 Alcoholic cirrhosis of liver with ascites; D64.9 Anemia, unspecified; F10.129 Alcohol abuse with intoxication, unspecified; Y90.8 Blood alcohol level of 240 mg/100 ml or more; F31.9 Bipolar disorder, unspecified; F17.210 Nicotine dependence, cigarettes, uncomplicated; Z79.899 Other long term (current) drug therapy; Z91.09 Other allergy status, other than to drugs and biological substances; Z88.5 Allergy status to narcotic agent; Z91.040 Latex allergy status; Z88.8 Allergy status to other drugs, medicaments and biological substances
CPT/HCPCS: 36415; 74177; 80048; 80076; 83735; 85025; 85610; 85730; 86140; 96361; 96374; 96375; 99284; A9270; G0480; J1170; J2405; J7030; Q9967

== ENCOUNTER 2018-01-28 11:03 | Emergency (ER) | payer MEDICARE, MEDICAID ==
[2018-01-28] MEDS ORDERED: Sodium Chloride 0.9% 1,000 ML IV ONE (11:30)
--- NOTE | 2018-01-28 11:32 | EDM.PDOC ---
ED HPI GENERAL MEDICAL PROBLEM - General Chief Complaint: Gastrointestinal Problem Stated Complaint: MED VIA [place] Time Seen by Provider: 01/28/18 11:20 Source of Information: Reports: Patient, EMS, Old Records, RN History Limitations: Reports: Other (incom) - History of Present Illness INITIAL COMMENTS - FREE TEXT/NARRATIVE: 57 yo female from [place] presents via EMS for dark stools since last night. Has a hx of heavy drinking and had hoped that if she quit drinking the bleeding would stop. Is light-headed with standing. No fever. Normally doctors in [place]. Has known liver dz. Has some abdominal pain. Has nausea, no vomiting. Onset: Gradual Onset Date: 01/27/18 Onset Time: 21:00 Duration: Hour(s):, Getting Worse Location: Reports: Abdomen Quality: Reports: Pressure Severity: Moderate Improves with: Reports: None Worsens with: Reports: None Context: Reports: Other (Hx of liver dz, alcohol abuse) Associated Symptoms: Reports: Nausea/Vomiting (no vomiting). Denies: Fever/ Chills Treatments ULTRASOUND SPEC: Reports: Other (see below) (EMS Fentanyl and Zofran) Abdominal Pain Score (Numeric/FACES): 7 - Related Data Allergies Allergy/AdvReac Type Severity Reaction Status Date / Time adhesive tape Allergy Rash Verified 06/17/17 09:50 Latex, Natural Rubber Allergy Rash Verified 06/17/17 09:50 varenicline [From Chantix] Allergy Other Verified 06/17/17 09:50 morphine AdvReac Nausea and Verified 06/17/17 14:27 Vomiting Home Meds: Home Meds Cyclobenzaprine [Flexeril] 10 mg PO TID PRN 03/21/17 [History] Dexlansoprazole [Dexilant] 60 mg PO DAILY 03/21/17 [History] Ibuprofen 800 mg PO Q8H PRN 03/21/17 [History] Prochlorperazine [Compazine] 10 mg PO Q6H PRN 03/21/17 [History] Venlafaxine [Effexor] 150 mg PO DAILY 03/21/17 [History] diphenhydrAMINE HCl [Banophen] 25 mg PO Q6HR PRN 03/21/17 [History] oxyCODONE HCl/Acetaminophen [oxyCODONE-Acetaminophen 5-325] 1 - 2 tab PO Q4H PRN 03/21/17 [History] Acetaminophen [Tylenol] 650 mg PO Q4HR PRN 06/17/17 [History] Albuterol Sulfate [Ventolin Hfa] 2 puff INH Q4HR PRN 06/17/17 [History] Calcium Carbonate/Vitamin D3 [Calcium Carb 500 MG] 500 mg PO ASDIRECTED PRN 03/25 [History] Cyanocobalamin (Vitamin B12) [Vitamin B12] 2,500 mcg PO WEEKLY 06/17/17 [History ] Furosemide [Lasix] 20 mg PO DAILY 06/17/17 [History] Magnesium Oxide 400 mg PO DAILY 06/17/17 [History] Metoprolol Succinate [Toprol XL] 50 mg PO DAILY 06/17/17 [History] Multivitamin [Multiple Vitamins] 2 tab PO DAILY 06/17/17 [History] Omeprazole 20 mg PO BID 06/17/17 [History] Polyethylene Glycol 3350 1 packet PO BEDTIME 06/17/17 [History] QUEtiapine Fumarate [Quetiapine Fumarate] 100 mg PO BEDTIME 06/17/17 [History] Thiamine HCl [B-1] 100 mg PO DAILY 06/17/17 [History] Cyclobenzaprine HCl 5 mg PO ASDIRECTED PRN 01/25/18 [History] diphenhydrAMINE HCl [Banophen] 25 mg PO ASDIRECTED 01/25/18 [History] Past Medical History HEENT History: Reports: Impaired Vision Respiratory History: Reports: Asthma Gastrointestinal History: Reports: Cholelithiasis, Gastritis Genitourinary History: Reports: Urinary Incontinence 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 states that she has a mass and a twisted colon was not able to get the colonoscopy. Social & Family History - Caffeine Use Caffeine Use: Reports: Coffee, Soda - Recreational Drug Use Recreational Drug Use: No ED ROS GENERAL - Review of Systems Review Of Systems: See Below Constitutional: Reports: No Symptoms HEENT: Reports: No Symptoms Respiratory: Reports: No Symptoms Cardiovascular: Reports: Lightheadedness Endocrine: Reports: No Symptoms GI/Abdominal: Reports: Abdominal Pain, Bloody Stool, Melena, Nausea. Denies: Constipation, Diarrhea, Distension, Vomiting : Reports: No Symptoms Musculoskeletal: Reports: No Symptoms Skin: Reports: No Symptoms Neurological: Reports: No Symptoms ED EXAM, GI/ABD - Physical Exam Exam: See Below Exam Limited By: No Limitations General Appearance: Alert, WD/WN, No Apparent Distress Eyes: Bilateral: Normal Appearance Ears: Normal External Exam, Normal Canal, Hearing Grossly Normal, Normal TMs Nose: Normal Inspection, Normal Mucosa, No Blood Throat/Mouth: Normal Inspection, Normal Oropharynx, Normal Voice, No Airway Compromise Head: Atraumatic, Normocephalic Neck: Normal Inspection Respiratory/Chest: No Respiratory Distress, Lungs Clear, Normal Breath Sounds, No Accessory Muscle Use Cardiovascular: Regular Rate, Rhythm, Tachycardia GI/Abdominal Exam: Normal Bowel Sounds, Distended, Tender, Other (draining surgical wound) Back Exam: Other Extremities: Normal Inspection, Normal Range of Motion, No Pedal Edema Neurological: Alert, Oriented, CN II-XII Intact, Normal Cognition, No Motor/ Sensory Deficits Psychiatric: Normal Affect, Normal Mood Skin Exam: Warm, Dry, Intact, Normal Color, No Rash, Pallor Course - Vital Signs Text/Narrative:: Dr. Sosa accepted @ [facility] @ [facility], ALS transfer planned. Blood infusing en route. Last Recorded V/S: Last Vital Signs Temp 37.2 C 01/28/18 11:11 Pulse 112 H 01/28/18 11:11 Resp 16 01/28/18 11:11 BP 135/72 01/28/18 11:11 Pulse Ox 95 01/28/18 11:11 - Orders/Labs/Meds Orders: Active Orders 24 hr Category Date Time Status Villatoro Catheter Insertion [Insert Urinary Catheter] [OM. Care 01/28/18 12:15 Ordered PC] Q24H Urinary Catheter Assessment [RC] ASDIRECTED Care 01/28/18 12:07 Active CULTURE BLOOD [BC] Stat Lab 01/28/18 12:13 Ordered CULTURE BLOOD [BC] Stat Lab 01/28/18 12:16 Ordered Hemoccult [OCCULT BLOOD DIAGNOSTIC] [OP] Stat Lab 01/28/18 11:24 Ordered PACKED CELLS [RED BLOOD CELLS LP] [BBK] Stat Lab 01/28/18 11:44 Ordered TYPE AND SCREEN [BBK] Stat Lab 01/28/18 11:44 Ordered UA W/MICROSCOPIC [URIN] Stat Lab 01/28/18 11:25 Ordered Pantoprazole [ProTONIX IV] Med 01/28/18 11:45 Active 80 mg IVPUSH .BOLUS Sodium Chloride 0.9% [Normal Saline] 1,000 ml Med 01/28/18 11:30 Active IV .BOLUS Sodium Chloride 0.9% [Normal Saline] 1,000 ml Med 01/28/18 12:15 Active IV ASDIRECTED Medication Orders Sodium Chloride (Normal Saline) 1,000 mls @ 1,000 mls/hr IV .BOLUS ONE Stop: 01/28/18 12:29 Last Admin: 01/28/18 12:10 Dose: 1,000 mls/hr Sodium Chloride (Normal Saline) 1,000 mls @ 150 mls/hr IV ASDIRECTED NICKI Pantoprazole Sodium (Protonix Iv) 80 mg IVPUSH .BOLUS NICKI Labs: Laboratory Tests 01/28/18 01/28/18 01/28/18 Range/Units 11:32 11:32 11:32 WBC 9.5 (4.5-11.0) K/uL RBC 1.82 L (3.30-5.50) M/uL Hgb 5.7 L* D (12.0-15.0) g/dL Hct 18.2 L (36.0-48.0) % MCV 100 H (80-98) fL MCH 31 (27-31) pg MCHC 31 L (32-36) % Plt Count 139 L (150-400) K/uL PT 15.2 H (9.5-12.0) sec INR 1.41 H (0.80-1.20) Sodium 133 L (140-148) mmol/L Potassium 6.2 H* (3.6-5.2) mmol/L Chloride 99 L (100-108) mmol/L Carbon Dioxide 22 (21-32) mmol/L Anion Gap 18.2 H (5.0-14.0) mmol/L BUN 16 D (7-18) mg/dL Creatinine 1.2 H D (0.6-1.0) mg/dL Est Cr Clr Drug Dosing 47.59 mL/min Estimated GFR (MDRD) 47 L (>60) Glucose 121 H (74-106) mg/dL Calcium 6.7 L* (8.5-10.1) mg/dL Total Bilirubin 1.2 H D (0.2-1.0) mg/dL AST (15-37) U/L ALT 740 H (12-78) U/L Alkaline Phosphatase 267 H (46-116) U/L Total Protein 5.9 L (6.4-8.2) g/dL Albumin 2.3 L (3.4-5.0) g/dL Globulin 3.6 H (2.3-3.5) g/dL Albumin/Globulin Ratio 0.6 L (1.2-2.2) Lipase (73-393) U/L 01/28/18 Range/Units 11:39 WBC (4.5-11.0) K/uL RBC (3.30-5.50) M/uL Hgb (12.0-15.0) g/dL Hct (36.0-48.0) % MCV (80-98) fL MCH (27-31) pg MCHC (32-36) % Plt Count (150-400) K/uL PT (9.5-12.0) sec INR (0.80-1.20) Sodium (140-148) mmol/L Potassium (3.6-5.2) mmol/L Chloride (100-108) mmol/L Carbon Dioxide (21-32) mmol/L Anion Gap (5.0-14.0) mmol/L BUN (7-18) mg/dL Creatinine (0.6-1.0) mg/dL Est Cr Clr Drug Dosing mL/min Estimated GFR (MDRD) (>60) Glucose (74-106) mg/dL Calcium (8.5-10.1) mg/dL Total Bilirubin (0.2-1.0) mg/dL AST (15-37) U/L ALT (12-78) U/L Alkaline Phosphatase (46-116) U/L Total Protein (6.4-8.2) g/dL Albumin (3.4-5.0) g/dL Globulin (2.3-3.5) g/dL Albumin/Globulin Ratio (1.2-2.2) Lipase 158 (73-393) U/L Meds: Medications Generic Name Dose Route Start Last Admin Trade Name Freq PRN Reason Stop Dose Admin Sodium Chloride 1,000 mls @ 1,000 mls/hr 01/28/18 11:30 01/28/18 12:10 Normal Saline IV 01/28/18 12:29 1,000 mls/hr .BOLUS ONE Administration Sodium Chloride 1,000 mls @ 150 mls/hr 01/28/18 12:15 Normal Saline IV ASDIRECTED NICKI Pantoprazole Sodium 80 mg 01/28/18 11:45 Protonix Iv IVPUSH .BOLUS NICKI Discontinued Medications Generic Name Dose Route Start Last Admin Trade Name [place] PRN Reason Stop Dose Admin Calcium Gluconate 1 gm 01/28/18 12:02 01/28/18 12:14 Calcium Gluconate IVPUSH 01/28/18 12:03 1 gm ONETIME ONE Administration Famotidine 20 mg 01/28/18 11:40 01/28/18 12:11 Pepcid IVPUSH 01/28/18 11:41 20 mg ONETIME ONE Administration Sodium Polystyrene Sulfonate 15 gm 01/28/18 12:02 01/28/18 12:12 Kayexalate PO 01/28/18 12:03 15 gm ONETIME ONE Administration Departure - Departure Time of Disposition: 12:35 Disposition: DC/Tfer to Acute Hospital 02 Condition: Poor Clinical Impression: Hyperkalemia, Hypocalcemia GI bleed Qualifiers: GI bleed type/associated pathology: unspecified gastrointestinal hemorrhage type Qualified Code(s): K92.2 - Gastrointestinal hemorrhage, unspecified Anemia Qualifiers: Anemia type: iron deficiency Iron deficiency anemia type: chronic blood loss Qualified Code(s): D50.0 - Iron deficiency anemia secondary to blood loss ( chronic) Alcoholic hepatitis Qualifiers: Ascites presence: without ascites Qualified Code(s): K70.10 - Alcoholic hepatitis without ascites - Discharge Information Referrals: PCP,None [Primary Care Provider] - Forms: ED Department Discharge - My Orders Last 24 Hours: My Active Orders 01/28/18 11:24 Hemoccult [OCCULT BLOOD DIAGNOSTIC] [OP] Stat 01/28/18 11:25 UA W/MICROSCOPIC [URIN] Stat 01/28/18 11:30 Sodium Chloride 0.9% [Normal Saline] 1,000 ml IV .BOLUS 01/28/18 11:44 PACKED CELLS [RED BLOOD CELLS LP] [BBK] Stat TYPE AND SCREEN [BBK] Stat 01/28/18 11:45 Pantoprazole [ProTONIX IV] 80 mg IVPUSH .BOLUS 01/28/18 12:07 Urinary Catheter Assessment [RC] ASDIRECTED 01/28/18 12:13 CULTURE BLOOD [BC] Stat 01/28/18 12:15 Villatoro Catheter Insertion [Insert Urinary Catheter] [OM.PC] Q24H Sodium Chloride 0.9% [Normal Saline] 1,000 ml IV ASDIRECTED 01/28/18 12:16 CULTURE BLOOD [BC] Stat - Assessment/Plan Last 24 Hours: My Active Orders 01/28/18 11:24 Hemoccult [OCCULT BLOOD DIAGNOSTIC] [OP] Stat 01/28/18 11:25 UA W/MICROSCOPIC [URIN] Stat 01/28/18 11:30 Sodium Chloride 0.9% [Normal Saline] 1,000 ml IV .BOLUS 01/28/18 11:44 PACKED CELLS [RED BLOOD CELLS LP] [BBK] Stat TYPE AND SCREEN [BBK] Stat 01/28/18 11:45 Pantoprazole [ProTONIX IV] 80 mg IVPUSH .BOLUS 01/28/18 12:07 Urinary Catheter Assessment [RC] ASDIRECTED 01/28/18 12:13 CULTURE BLOOD [BC] Stat 01/28/18 12:15 Villatoro Catheter Insertion [Insert Urinary Catheter] [OM.PC] Q24H Sodium Chloride 0.9% [Normal Saline] 1,000 ml IV ASDIRECTED 01/28/18 12:16 CULTURE BLOOD [BC] Stat
[2018-01-28] MEDS ORDERED: Famotidine 20 MG/2 ML SDV IVPUSH ONE (11:40)
[2018-01-28] MEDS ORDERED: Pantoprazole 40 MG Vial IVPUSH SCH (11:45)
[2018-01-28] MEDS ORDERED: Calcium Gluconate 10% 1 GM/10 ML SDV IVPUSH ONE (12:02)
[2018-01-28] MEDS ORDERED: Sodium Polystyrene Sulfonate 15 GM/60 ML Susp 60 ML Bot PO ONE (12:02)
[2018-01-28] MEDS ORDERED: Sodium Chloride 0.9% 1,000 ML IV SCH (12:15)
[2018-01-28] MEDS ORDERED: HYDROmorphone 1 MG/ML Syringe IVPUSH ONE (12:22)
[2018-01-28] MEDS ORDERED: SODIUM CHLORIDE 0.9% IV SCH (12:30)
[2018-01-28] MEDS ORDERED: OCTREOTIDE IV SCH (12:30)
== END 2018-01-28 13:21 ==
LOC: JP.ED 11:03
DX: K92.2 Gastrointestinal hemorrhage, unspecified (principal); K70.10 Alcoholic hepatitis without ascites; D50.0 Iron deficiency anemia secondary to blood loss (chronic); E87.5 Hyperkalemia; E83.51 Hypocalcemia; F31.9 Bipolar disorder, unspecified; Z79.899 Other long term (current) drug therapy; Z88.5 Allergy status to narcotic agent; Z91.040 Latex allergy status; Z91.09 Other allergy status, other than to drugs and biological substances
CPT/HCPCS: 36415; 36430; 51702; 80053; 83690; 85027; 85610; 86850; 86900; 86901; 86920; 86922; 87040; 96365; 96375; 99285; A9270; C9113; J0610; J1170; J2354; J3490; J7030; J7050; P9016; 99283